=== PATIENT | male | born 1955 | race Caucasian/White ===

== ENCOUNTER 2016-09-07 06:52 | Day surgery (SDC) | payer MEDICAID ==
[~2016-09-07] VITALS: Ht 182.9 cm; Wt 86.2 kg
[~2016-09-07 06:52] MED LIST: ADDERALL XR30 MG PO; BENADRY1 PO; DIFLUCAN100 M1; FIBER THERAPY500 MG PO; GABAPENTIN400 M2 PO; HYDROCHLOROTHIA50 MG PO; HYDROCODONE/ACE1 TAB PO; LISINOPRIL40 MG PO; OMEPRAZOLE20 M2 PO; PROBIOTI2; SALINE NASAL S0.651; STOOL SOFTENER100 MG PO; TESTOSTERON100 MG/ML; TRAZODONE50 MG PO; VENTOLIN HF1 IN; WELLBUTRIN150 M1 PO; ZOFRAN4 M1 PO
[2016-09-07 09:27] VITALS: BP 153/83
== END 2016-09-07 09:40 | disposition home or self-care (01) | DRG 552 ==
LOC: ORM 06:52
PROVIDERS: ATTEND Anesthesiology Pain Medicine
PROC: 3E0T3BZ Introduction of Anesthetic Agent into Peripheral Nerves and Plexi, Percutaneous Approach (ICD-10-PCS; principal; 2016-09-07)
PROC: 3E0T33Z Introduction of Anti-inflammatory into Peripheral Nerves and Plexi, Percutaneous Approach (ICD-10-PCS; 2016-09-07)
PROC: 3E0T3BZ Introduction of Anesthetic Agent into Peripheral Nerves and Plexi, Percutaneous Approach (ICD-10-PCS; 2016-09-07)
PROC: 3E0T33Z Introduction of Anti-inflammatory into Peripheral Nerves and Plexi, Percutaneous Approach (ICD-10-PCS; 2016-09-07)
PROC: 3E0T3BZ Introduction of Anesthetic Agent into Peripheral Nerves and Plexi, Percutaneous Approach (ICD-10-PCS; 2016-09-07)
PROC: 3E0T33Z Introduction of Anti-inflammatory into Peripheral Nerves and Plexi, Percutaneous Approach (ICD-10-PCS; 2016-09-07)
DX: M54.5 Low back pain (principal)

== ENCOUNTER 2016-09-28 06:24 | Day surgery (SDC) | payer MEDICAID ==
[~2016-09-28] VITALS: Ht 182.9 cm; Wt 86.2 kg
[2016-09-28] MEDS ORDERED: HYDROCODONE/ACE1 TAB PO (07:59)
[2016-09-28 08:18] VITALS: BP 149/82
== END 2016-09-28 08:50 | disposition home or self-care (01) | DRG 552 ==
LOC: ORM 06:24
PROVIDERS: ATTEND Anesthesiology Pain Medicine
PROC: 3E0T3BZ Introduction of Anesthetic Agent into Peripheral Nerves and Plexi, Percutaneous Approach (ICD-10-PCS; principal; 2016-09-28)
PROC: 3E0T33Z Introduction of Anti-inflammatory into Peripheral Nerves and Plexi, Percutaneous Approach (ICD-10-PCS; 2016-09-28)
PROC: 3E0T3BZ Introduction of Anesthetic Agent into Peripheral Nerves and Plexi, Percutaneous Approach (ICD-10-PCS; 2016-09-28)
PROC: 3E0T33Z Introduction of Anti-inflammatory into Peripheral Nerves and Plexi, Percutaneous Approach (ICD-10-PCS; 2016-09-28)
PROC: 3E0T3BZ Introduction of Anesthetic Agent into Peripheral Nerves and Plexi, Percutaneous Approach (ICD-10-PCS; 2016-09-28)
PROC: 3E0T33Z Introduction of Anti-inflammatory into Peripheral Nerves and Plexi, Percutaneous Approach (ICD-10-PCS; 2016-09-28)
PROC: 3E0T3BZ Introduction of Anesthetic Agent into Peripheral Nerves and Plexi, Percutaneous Approach (ICD-10-PCS; 2016-09-28)
PROC: 3E0T33Z Introduction of Anti-inflammatory into Peripheral Nerves and Plexi, Percutaneous Approach (ICD-10-PCS; 2016-09-28)
PROC: 3E0T3BZ Introduction of Anesthetic Agent into Peripheral Nerves and Plexi, Percutaneous Approach (ICD-10-PCS; 2016-09-28)
PROC: 3E0T33Z Introduction of Anti-inflammatory into Peripheral Nerves and Plexi, Percutaneous Approach (ICD-10-PCS; 2016-09-28)
DX: M54.5 Low back pain (principal)

== ENCOUNTER 2017-11-01 06:31 | Day surgery (SDC) | payer OTHER ==
[~2017-11-01] VITALS: Ht 182.9 cm; Wt 94.3 kg
[~2017-11-01 06:31] MED LIST changes: +AFRIN0.05 %; +AMBIEN10 MG PO; +APPLE CIDER PO; +FOLIC ACID1 M1; +IMODIUM A-D2 M3; +MEDDOSEPAK PO; +METAMUCIL58.6 % PO; +SALINE; +SUDAFED CONGEST30 MG PO; +TEMAZEPAM30 MG PO; +TYLENOL500 MG PO; +VALIUM5 MG PO; +VENLAFAXINE HC150 M1 PO; +ZADITOR0.025 % OP; +ZOLPIDEM10 M1 PO; +[UNRECOGNIZED DRUG - OTHER]; +[UNRECOGNIZED DRUG - OTHER] PO
[2017-11-01] MEDS ORDERED: HYDROCODONE/ACE1 TAB PO (08:41)
[2017-11-01 11:17] VITALS: BP 92/69
== END 2017-11-01 09:05 | disposition home or self-care (01) ==
LOC: ORM 06:31
PROVIDERS: ATTEND Anesthesiology Pain Medicine
DX: M54.5 Low back pain (principal); M46.96 Unspecified inflammatory spondylopathy, lumbar region

== ENCOUNTER 2018-09-05 06:06 | Day surgery (SDC) | payer OTHER ==
[~2018-09-05 06:06] MED LIST changes: +NEURONTIN600 MG PO; +NORCO1 TA2 PO
[2018-09-05] MEDS ORDERED: SYMBICORT 80-4.5MCG IN (07:07)
[2018-09-05] MEDS ORDERED: AMLODIPINE5 MG PO (07:07)
[2018-09-05] MEDS ORDERED: [UNRECOGNIZED DRUG - OTHER] (07:09)
[2018-09-05] MEDS ORDERED: NORCO1 TA2 PO (08:18)
[2018-09-05 08:25] VITALS: BP 140/76
[2018-09-05] MEDS ORDERED: NEURONTIN600 MG PO (08:48)
== END 2018-09-05 09:05 | disposition home or self-care (01) ==
LOC: ORM 06:06
PROVIDERS: ATTEND Anesthesiology Pain Medicine
DX: M54.5 Low back pain (principal); M46.96 Unspecified inflammatory spondylopathy, lumbar region